=== PATIENT | male | born 1960 | race Caucasian/White ===

== ENCOUNTER 2016-06-14 14:03 | Inpatient (IN) | payer OTHER ==
[~2016-06-14] VITALS: Ht 182.9 cm; Wt 84.2 kg
[2016-06-14] MEDS ORDERED: MECL1CHW4 PO (14:22)
[2016-06-14] MEDS ORDERED: IMD/2 PO (14:22)
[2016-06-14] MEDS ORDERED: [UNRECOGNIZED DRUG - CODE] IM (14:22)
[2016-06-14] MEDS ORDERED: ACET325T30 PO (14:22)
[2016-06-14] MEDS ORDERED: CHLO25CA9 PO (14:22)
[2016-06-14] MEDS ORDERED: SODIUM CHLORIDE 0.9% 1000ML 1,000 ML IV ONE (14:25)
[2016-06-14] MEDS ORDERED: SODIUM CHLORIDE 0.9% 1000ML 1,000 ML IV STA (14:25)
[2016-06-14] MEDS ORDERED: MULTI-VITAMIN INFUSION INJ 10 ML, THIAMINE HCL INJ 100 MG, FoLIC ACID INJ 1 MG in SODIU... IV ONE (14:30)
--- NOTE | 2016-06-14 14:43 | EMERGENCY ROOM VISIT NOTE ---
History Report prepared by Ambar: Alana Mccall Under the Supervision of: Dr. Gordy Jason M.D. First contact with patient: 14:17 Chief Complaint: ALTERED MENTAL STATUS Stated Complaint: DETOX Nursing Triage Summary: Pt arrives from [facility] with 2 guards, pt was detoxing from alcohol, has been at [facility] for two days, [facility] [place] [facility] to that. Pt knows that Vini is the President and when asked the year, pt states "2063". Pt talking about nuclear bombs. Pt denies SI/HI. Per documentation, pt is receiving Librium. Pt rambling in triage and when being assessed for initial information documentation. History of Present Illness The patient is a 55 year old male who presents to the Emergency Room with complaints of worsening altered mental status for the past 2 days. The patient was brought to the ED from [facility]. Per guards, they have had the patient for 2 days, but they are unsure how long he was in [facility] prior to that. They state that he was brought to them for detox. The patient states that he drinks about a 6-pack of beer a day and last consumed alcohol about 4-5 days ago. Guards state that he has been confused since he arrived at their facility, but his mental status has worsened today so he was brought to the ED for further evaluation. He has been in isolation, so guards deny any trauma or fighting. The patient is currently on Librium. He states that he has been experiencing abdominal burning and cramping and has been losing weight because he has been unable to eat. He notes rectal bleeding and states that he has been bleeding from his nose, mouth, and ears. He denies any illicit drug use. The history is limited secondary to the patient's AMS. Source of History: patient, other ([place] [facility] [place]) History Limited By: AMS Onset: 2 days ago Position: other (global) Quality: other (altered mental status) Timing: worsening Associated Symptoms: + abdominal pain Note: He notes rectal bleeding and states that he has been bleeding from his nose, mouth, and ears Review of Systems ROS is limited secondary to the patient's AMS. Past Medical & Surgical Medical Problems: (1) Alcohol withdrawal (2) Hepatitis C (3) History of alcohol abuse (4) History of IV drug abuse Surgical Problems: (1) H/O foot surgery Old medical records were attempted to be reviewed but there are no old records at this hospital. Nurse's notes were reviewed and I agree with. I did review the records that were sent over from [facility] and they were very limited unfortunately Family History No pertinent history stated. Social History Smoking Status: Current Every Day Smoker Alcohol Use: heavy Housing Status: other (incarcerated) Occupation Status: other (incarcerated) Current/Historical Medications Scheduled Thiamine Hcl (Thiamine Hcl), 100 MG IM DAILY Scheduled PRN Acetaminophen (Acetaminophen), 650 MG PO TID PRN for Pain Chlordiazepoxide Hcl (Librium), 25 MG PO TID PRN for WITHDRAWAL Loperamide Hcl (Imodium), 2 MG PO QID PRN for Diarrhea Meclizine Hcl (Meclizine Hcl), 25 MG PO TID PRN for Dizziness or Vertigo Allergies Coded Allergies: No Known Allergies (Unverified , 06/14/16) Physical Exam Vital Signs Date Time Temp Pulse Resp B/P Pulse Ox O2 Delivery O2 Flow Rate FiO2 06/14/16 15:54 85 20 136/90 97 Room Air 06/14/16 14:44 105 06/14/16 14:10 96 Room Air 06/14/16 14:09 36.7 88 20 114/83 96 Room Air Physical Exam General: Well developed well nourished non-ill appearing middle-aged male in no acute distress, breathing comfortably on room air. Normal speech HEENT: Normal cephalic atraumatic. Pupils are equal round and reactive to light. Extraocular movements are intact. Oropharynx is pink with moist mucous membranes. No swelling of the mouth lips or tongue. Neck: Supple with a midline trachea. No meningeal signs or stiffness, no JVD or bruits. No Stridor. Chest: Clear to auscultation bilaterally. No wheezes or rhonchi. No increased work of breathing. Heart: regular rate and rhythm. Abdomen: Soft nontender, nondistended without rebound guarding or rigidity. Extremities: No cyanosis clubbing or edema. No calf tenderness or assymetry Spine/Back. Non tender to palpation. No CVA tenderness Skin: Good turgor without rashes. Neurologic exam: Answers some questions appropriately, very tangential thinking. Oriented to person and place, but not time. No tremor. Cranial nerves two through 12 are intact. Motor and sensation are intact and symmetrical throughout. Medical Decision & Procedures ER Provider Diagnostic Interpretation: Radiology results as stated below per my review and radiologist interpretation: CHEST ONE VIEW PORTABLE HISTORY: Atypical CHEST PAIN COMPARISON: None. FINDINGS: The lungs are clear. Cardiac silhouette is normal in size. No pleural effusions. No pneumothorax. IMPRESSION: No acute process. Electronically signed by: Shoaib Manrique M.D. 06/14/2016 2:58 PM Dictated Date/Time: 06/14/2016 2:[address] CT DOSE: 1425.10 mGy.cm HISTORY: Altered mental status. TECHNIQUE: Multiaxial CT images of the head were performed without the use of intravenous contrast. Automated exposure control was utilized for this study. Comparison: None. Findings: The paranasal sinuses and mastoid air cells are clear. The calvarium and skull base are intact. The ventricles and sulci are within normal limits. There is no mass, hematoma, midline shift, or acute infarct. Impression: No acute intracranial abnormality. Electronically signed by: Shoaib Manrique M.D. 06/14/2016 4:03 PM Dictated Date/Time: 06/14/2016 3:27 PM Laboratory Results 06/14/16 14:20 Red Blood Count 3.77, Mean Corpuscular Volume 96.0, Mean Corpuscular Hemoglobin 34.0, Mean Corpuscular Hemoglobin Concent 35.4, Mean Platelet Volume 11.0, Neutrophils (%) (Auto) 68.0, Lymphocytes (%) (Auto) 19.8, Monocytes (%) (Auto) 11.9, Eosinophils (%) (Auto) 0.1, Basophils (%) (Auto) 0.1, Neutrophils # (Auto ) 4.66, Lymphocytes # (Auto) 1.36, Monocytes # (Auto) 0.82, Eosinophils # (Auto ) 0.01, Basophils # (Auto) 0.01 06/14/16 14:20 Test 06/14/16 14:10 06/14/16 14:20 06/14/16 14:25 06/14/16 14:34 Bedside Glucose 111 mg/dl (70-99) White Blood Count 6.87 K/uL (4.8-10.8) Red Blood Count 3.77 M/uL (4.7-6.1) Hemoglobin 12.8 g/dL (14.0-18.0) Hematocrit 36.2 % (42-52) Mean Corpuscular Volume 96.0 fL (80-100) Mean Corpuscular Hemoglobin 34.0 pg (25-34) Mean Corpuscular Hemoglobin Concent 35.4 g/dl (32-36) Platelet Count 97 K/uL (130-400) Mean Platelet Volume 11.0 fL (7.4-10.4) Neutrophils (%) (Auto) 68.0 % Lymphocytes (%) (Auto) 19.8 % Monocytes (%) (Auto) 11.9 % Eosinophils (%) (Auto) 0.1 % Basophils (%) (Auto) 0.1 % Neutrophils # (Auto) 4.66 K/uL (1.4-6.5) Lymphocytes # (Auto) 1.36 K/uL (1.2-3.4) Monocytes # (Auto) 0.82 K/uL (0.11-0.59) Eosinophils # (Auto) 0.01 K/uL (0-0.5) Basophils # (Auto) 0.01 K/uL (0-0.2) RDW Standard Deviation 50.0 fL (36.4-46.3) RDW Coefficient of Variation 14.2 % (11.5-14.5) Immature Granulocyte % (Auto) 0.1 % Immature Granulocyte # (Auto) 0.01 K/uL (0.00-0.02) Platelet Estimate DECREASED Large Platelets 1+ Prothrombin Time 14.2 SECONDS (9.0-12.0) Prothromb Time International Ratio 1.3 (0.9-1.1) Activated Partial Thromboplast Time 28.3 SECONDS (21.0-31.0) Partial Thromboplastin Ratio 1.1 Anion Gap 12.0 mmol/L (3-11) Est Creatinine Clear Calc Drug Dose 60.4 ml/min Estimated GFR () 59.5 Estimated GFR (Non- 51.3 BUN/Creatinine Ratio 22.7 (10-20) Calcium Level 9.2 mg/dl (8.5-10.1) Magnesium Level 1.3 mg/dl (1.8-2.4) Total Bilirubin 2.2 mg/dl (0.2-1) Direct Bilirubin 1.2 mg/dl (0-0.2) Aspartate Amino Transf (AST/SGOT) 118 U/L (15-37) Alanine Aminotransferase (ALT/SGPT) 53 U/L (12-78) Alkaline Phosphatase 62 U/L (45-117) Total Creatine Kinase 1138 U/L (39-308) Creatine Kinase MB 12.9 ng/ml (0.5-3.6) Total Protein 8.2 gm/dl (6.4-8.2) Albumin 3.8 gm/dl (3.4-5.0) Lipase 562 U/L (73-393) Thyroid Stimulating Hormone (TSH) 5.970 uIu/ml (0.300-4.500) Free Thyroxine 1.56 ng/dl (0.80-1.60) Creatine Kinase MB Ratio (0-3.0) Bedside Troponin I 0.000 ng/ml (0-0.045) Laboratory studies as stated above per my review. Medications Administered Medications (Trade) Dose Ordered Sig/Camacho Route Start Time Stop Time Status Last Admin Dose Admin Sodium Chloride 1,000 ml @ 999 mls/hr Q1H1M STAT IV 06/14/16 14:25 06/14/16 15:25 DC 06/14/16 14:39 999 MLS/HR Sodium Chloride 1,000 ml @ 150 mls/hr Q6H40M ONCE IV 06/14/16 14:25 06/14/16 19:07 DC 06/14/16 14:25 150 MLS/HR Multivitamins/ Thiamine HCl/ Folic Acid/Sodium Chloride (Mvi Infusion Inj/Vitamin B-1 Inj/Folvite Inj/ Nss 1000ml) 1,011.2 ml @ 200 mls/ hr Q5H4M ONCE IV 06/14/16 14:30 06/14/16 19:33 DC 06/14/16 14:57 200 MLS/HR Lorazepam (Ativan Inj) 1 mg NOW STAT IV 06/14/16 15:19 06/14/16 15:21 DC 06/14/16 15:54 1 MG ECG Indication: altered mental status Rate (beats per minute): 88 Rhythm: sinus rhythm Findings: PAC (occasional ), no acute ischemic change, prolonged QT (mildly) ED Course 1417: Past medical records reviewed. The patient was evaluated in room A11B, and a complete history and physical examination were performed. 1425: NSS 1000 ml @ 150 mls/hr IV, NSS 1000 ml @ 999 mls/hr IV 1430: Multivitamins 10ml/Thiamine HCl 100 mg/Folic Acid 1 mg/Sodium Chloride 1011.2 ml @ 200 mls/hr IV 1515: I reassessed the patient at this time. He is feeling shaky but resting comfortably. I discussed the results and treatment plan with the patient. I answered all pertaining questions that he had. He expressed understanding and verbalized agreement. 1519: Ativan 1 mg IV 1534: I spoke with Layne Zamora PA-C. We discussed the patients results and treatment plan. [facility] 1829: I reassessed the patient. He had just received 4mg more of Ativan. He is still having withdrawal symptoms and the plan is to admit the patient to the ICU. 1849: I went to reevaluate the patient but he has been taken to the ICU. Medical Decision Differential diagnoses includes alcohol withdrawal, electrolyte or metabolic abnormality, trauma, intracranial hemorrhage, infection. This patient comes in as described above. He has had increasing confusion he has a history of alcoholism apparently is on Librium in the [facility]. History is very unclear but apparently he's been there for 2 days was transferred there from somewhere else and we think the last drink was 4 days ago. On exam, he answers some questions appropriately but others not him a his initial vitals are stable and he is not tachycardic or hypertensive. He was observed, I did a CAT scan is had multiple blood testing EKG. CAT scan of his head is unremarkable. He has mild elevation of his liver functions and kidney functions but no reason to cause his symptoms. He did seem to get a little more tremulous and was given Ativan 1 mg IV, he was also given an IV banana bag. Most likely this is alcohol withdrawal a could be related other substances. I did attempt to get an acetaminophen and salicylate levels however they could not run him in our lab due to interference with the bilirubin apparently. There is nothing to suggest that he's taken an intentional overdose although his history is unreliable. I do think he needs to be admitted for observation further treatment and evaluation. I have consulted the [facility] hospitalist who saw him in the ER. Note: The patient was seen by the [facility] team in the ER. Shortly after that he decompensated and became much worse. He became agitated and shaky which she had not been. His vital signs of a normal and he was now tachycardic. There is certainly concern for DTs and alcohol withdrawal. The [facility] team did give him several boluses of IV Ativan. I did come and assess the patient as well and agree with the plan. They have also plan to admit him to the ICU and he well further monitoring there and may need further medications in the ICU such as dexmedetomidine. Consults Time Called: 152 Consulting Physician: Layne Zamora PA-C Returned Call: 1534 I spoke with Layne Zamora PA-C. We discussed the patients results and treatment plan. The patient will be evaluated by the [facility] Hospitalist Group for further management. Impression Primary Impression: Altered mental status Additional Impression: Alcohol withdrawal Scribe Attestation The scribe's documentation has been prepared under my direction and personally reviewed by me in its entirety. I confirm that the note above accurately reflects all work, treatment, procedures, and medical decision making performed by me. Departure Information Dispostion Being Evaluated By Hospitalist Referrals Sven DONATO (PCP) Patient Instructions My [facility] Problem Qualifiers Primary Impression: Altered mental status Altered mental status type: unspecified Qualified Codes: R41.82 - Altered mental status, unspecified Additional Impression: Alcohol withdrawal Complication of substance-induced condition: uncomplicated Qualified Codes: F10.230 - Alcohol dependence with withdrawal, uncomplicated
[2016-06-14 14:53] LABS: INR 1.3 (0.9-1.1); PARTIAL THROMBOPLASTIN RATIO 1.1; PROTHROMBIN TIME (PATIENT) 14.2 SECONDS (9.0-12.0)
[2016-06-14 14:55] LABS: BUN/CREATININE RATIO 22.7 (10-20); CALCIUM 9.2 mg/dl (8.5-10.1); CREATININE 1.5 mg/dl (0.60-1.40); MAGNESIUM 1.3 mg/dl (1.8-2.4); POTASSIUM 3.1 mmol/L (3.5-5.1)
--- NOTE | 2016-06-14 14:58 | DIAGNOSTIC IMAGING REPORT ---
CHEST ONE VIEW PORTABLE HISTORY: Atypical CHEST PAIN COMPARISON: None. FINDINGS: The lungs are clear. Cardiac silhouette is normal in size. No pleural effusions. No pneumothorax. IMPRESSION: No acute process. Electronically signed by: Shoaib Manrique M.D. 06/14/2016 2:58 PM Dictated Date/Time: 06/14/2016 2:55 PM
[2016-06-14 15:10] LABS: CKMB/CK RATIO 1.1 (0-3.0); THYROID STIMULATING HORMONE 5.97 uIu/ml (0.300-4.500)
[2016-06-14 15:12] LABS: HEMATOCRIT 36.2 % (42-52); MEAN CORPUSCULAR HGB CONC 35.4 g/dl (32-36); PLATELET COUNT 97 K/uL (130-400); RED BLOOD COUNT 3.77 M/uL (4.7-6.1); WHITE BLOOD COUNT 6.87 K/uL (4.8-10.8)
[2016-06-14] MEDS ORDERED: LORAZEPAM 2 MG/ML 1 ML VIAL IV STA ×2 (15:19→17:46)
[2016-06-14 15:23] LABS: BASO % 0.1 %; BASO ABS # 0.01 K/uL (0-0.2); COMPLETE YES; EOS % 0.1 %; IG% 0.1 %; LARGE PLATELETS 1+; LYMPH % 19.8 %; LYMPH ABS # 1.36 K/uL (1.2-3.4); MONO % 11.9 %; PLT ESTIMATE DECREASED
--- NOTE | 2016-06-14 16:05 | DIAGNOSTIC IMAGING REPORT ---
HEAD CT NONCONTRAST CT DOSE: 1425.10 mGy.cm HISTORY: Altered mental status. TECHNIQUE: Multiaxial CT images of the head were performed without the use of intravenous contrast. Automated exposure control was utilized for this study. Comparison: None. Findings: The paranasal sinuses and mastoid air cells are clear. The calvarium and skull base are intact. The ventricles and sulci are within normal limits. There is no mass, hematoma, midline shift, or acute infarct. Impression: No acute intracranial abnormality. Electronically signed by: Shoaib Manrique M.D. 06/14/2016 4:03 PM Dictated Date/Time: 06/14/2016 3:27 PM
[2016-06-14] MEDS ORDERED: THIAMINE HCL 100 MG TAB PO STA (16:23)
[2016-06-14] MEDS ORDERED: GABAPENTIN 600 MG TAB PO SCH (16:30)
[2016-06-14] MEDS ORDERED: ONDANSETRON INJ 2 MG/ML 2 ML VIAL IV PRN (16:45)
[2016-06-14] MEDS ORDERED: LORAZEPAM 2 MG/ML 1 ML VIAL IV ONE ×3 (17:00→19:00)
--- NOTE | 2016-06-14 17:03 | History and Physical ---
History & Physical Date & Time of Service: Jun 14, 2016 at 16:34 Chief Complaint: DETOX Primary Care Physician: Sven DONATO History of Present Illness Source: patient, other (nursing staff, correctional officers at bedside) This is a 55 year old male with PMH of alcohol abuse, remote history of IVDA, Hepatitis C, chronic smoker, who was sent to the ED from [facility] for altered mental status. Patient is not a reliable historian due to mental status. Patient has been in and out of [facility] in the past but was re- incarcerated 2 days ago. Correctional officers at bedside report worsening mental status over past 2 days. Patient was already confused when picked up off the street 2 days ago but worsened over past 2 days. Pt states "I am going though DT's". He reports tremors, anxiety, sweating, abdominal cramping, paresthesias. He told ER physician last drink was 4 days ago, but tells me 8 days. He was drinking 6 pack of beer every day. He has been on Librium. He was vomiting several days ago when drinking but no longer feeling nauseous. He additionally reports rectal bleeding attributed to hemorrhoids. Denies headache , URI symptoms, cough, SOB, chest pain, diarrhea, urinary changes, recent fall or injury. Denies history of withdrawal seizure. Denies hx of HTN, DM, cardiac or lung disease. No further hx could be obtained due to AMS. Past Medical/Surgical History Medical Problems: (1) Hepatitis C Status: Chronic (2) History of alcohol abuse Status: Chronic (3) History of IV drug abuse Status: Chronic Surgical Problems: (1) H/O foot surgery Status: Chronic Family History Could not be obtained due to mental status. Social History Smoking Status: Current Every Day Smoker Alcohol Use: heavy (see HPI) Drug Use: other (history of IVDA "a long time ago") Housing status: other (in [facility]) Occupational Status: other (incarcerated) Allergies Coded Allergies: No Known Allergies (Unverified , 06/14/16) Home Medications Scheduled Thiamine Hcl (Thiamine Hcl), 100 MG IM DAILY Scheduled PRN Acetaminophen (Acetaminophen), 650 MG PO TID PRN for Pain Chlordiazepoxide Hcl (Librium), 25 MG PO TID PRN for WITHDRAWAL Loperamide Hcl (Imodium), 2 MG PO QID PRN for Diarrhea Meclizine Hcl (Meclizine Hcl), 25 MG PO TID PRN for Dizziness or Vertigo Review of Systems Full ROS could not be reliably obtained due to patient's mental status. Physical Exam Vital Signs Date Time Temp Pulse Resp B/P Pulse Ox O2 Delivery O2 Flow Rate FiO2 06/14/16 15:54 85 20 136/90 97 Room Air 06/14/16 14:44 105 06/14/16 14:09 36.7 88 20 114/83 96 Room Air General Appearance: WD/WN, + pertinent finding (anxious confused 55 year old male) Head: normocephalic, atraumatic Eyes: normal inspection, PERRL, EOMI ENT: hearing grossly normal, pharynx normal Neck: supple, trachea midline Respiratory/Chest: lungs clear, normal breath sounds, no respiratory distress, no accessory muscle use Cardiovascular: regular rate, rhythm, no murmur Abdomen/GI: normal bowel sounds, non tender, soft Extremities/Musculoskelatal: no calf tenderness, no pedal edema, + pertinent finding (left arm and bilateral ankles in handcuffs) Neurologic/Psych: alert, + disoriented (oriented to person and date, disoriented to place (states location as [place])), + pertinent finding (anxious , tremulous, + tangential thinking, speech is normal, no facial droop, no gross focal motor deficit) Skin: normal color, warm/dry Diagnostics Laboratory Results Results Past 24 Hours Test 06/14/16 14:10 06/14/16 14:20 06/14/16 14:25 06/14/16 14:34 Range/Units Bedside Glucose 111 70-99 mg/dl White Blood Count 6.87 4.8-10.8 K/uL Red Blood Count 3.77 4.7-6.1 M/uL Hemoglobin 12.8 14.0-18.0 g/dL Hematocrit 36.2 42-52 % Mean Corpuscular Volume 96.0 80-100 fL Mean Corpuscular Hemoglobin 34.0 25-34 pg Mean Corpuscular Hemoglobin Concent 35.4 32-36 g/dl Platelet Count 97 130-400 K/uL Mean Platelet Volume 11.0 7.4-10.4 fL Neutrophils (%) (Auto) 68.0 % Lymphocytes (%) (Auto) 19.8 % Monocytes (%) (Auto) 11.9 % Eosinophils (%) (Auto) 0.1 % Basophils (%) (Auto) 0.1 % Neutrophils # (Auto) 4.66 1.4-6.5 K/uL Lymphocytes # (Auto) 1.36 1.2-3.4 K/uL Monocytes # (Auto) 0.82 0.11-0.59 K/uL Eosinophils # (Auto) 0.01 0-0.5 K/uL Basophils # (Auto) 0.01 0-0.2 K/uL RDW Standard Deviation 50.0 36.4-46.3 fL RDW Coefficient of Variation 14.2 11.5-14.5 % Immature Granulocyte % (Auto) 0.1 % Immature Granulocyte # (Auto) 0.01 0.00-0.02 K/uL Platelet Estimate DECREASED Large Platelets 1+ Prothrombin Time 14.2 9.0-12.0 SECONDS Prothromb Time International Ratio 1.3 0.9-1.1 Activated Partial Thromboplast Time 28.3 21.0-31.0 SECONDS Partial Thromboplastin Ratio 1.1 Sodium Level 138 136-145 mmol/L Potassium Level 3.1 3.5-5.1 mmol/L Chloride Level 101 98-107 mmol/L Carbon Dioxide Level 25 21-32 mmol/L Anion Gap 12.0 3-11 mmol/L Blood Urea Nitrogen 34 7-18 mg/dl Creatinine 1.50 0.60-1.40 mg/dl Est Creatinine Clear Calc Drug Dose 60.4 ml/min Estimated GFR () 59.5 Estimated GFR (Non- 51.3 BUN/Creatinine Ratio 22.7 10-20 Random Glucose 99 70-99 mg/dl Calcium Level 9.2 8.5-10.1 mg/dl Magnesium Level 1.3 1.8-2.4 mg/dl Total Bilirubin 2.2 0.2-1 mg/dl Direct Bilirubin 1.2 0-0.2 mg/dl Aspartate Amino Transf (AST/SGOT) 118 15-37 U/L Alanine Aminotransferase (ALT/SGPT) 53 12-78 U/L Alkaline Phosphatase 62 45-117 U/L Total Creatine Kinase 1138 39-308 U/L Creatine Kinase MB 12.9 0.5-3.6 ng/ml Creatine Kinase MB Ratio 1.1 0-3.0 Total Protein 8.2 6.4-8.2 gm/dl Albumin 3.8 3.4-5.0 gm/dl Lipase 562 73-393 U/L Thyroid Stimulating Hormone (TSH) 5.970 0.300-4.500 uIu/ml Bedside Troponin I 0.000 0-0.045 ng/ml Test 06/14/16 16:23 Range/Units Diagnostic Radiology HEAD CT NONCONTRAST CT DOSE: 1425.10 mGy.cm HISTORY: Altered mental status. TECHNIQUE: Multiaxial CT images of the head were performed without the use of intravenous contrast. Automated exposure control was utilized for this study. Comparison: None. Findings: The paranasal sinuses and mastoid air cells are clear. The calvarium and skull base are intact. The ventricles and sulci are within normal limits. There is no mass, hematoma, midline shift, or acute infarct. Impression: No acute intracranial abnormality. CHEST ONE VIEW PORTABLE HISTORY: Atypical CHEST PAIN COMPARISON: None. FINDINGS: The lungs are clear. Cardiac silhouette is normal in size. No pleural effusions. No pneumothorax. IMPRESSION: No acute process. EKG sinus rhythm with PACs, prolonged QT (qtc 500), nonspecific T wave abnormality in III, no ST change Impression Assessment and Plan ALCOHOL WITHDRAWAL Admit to telemetry Presents with altered mental status, tremor, hx heavy alcohol use, last drink approx 4 days ago HR and BP stable CT head- no acute findings Urine drug screen ordered Treated in ER with Ativan 1 mg IV, banana bag, IVF's Remains tremulous, confused- will give additional Ativan 3 mg IV Start gabapentin withdrawal protocol Daily thiamine Continue IVF's AN Creat is 1.5; baseline unknown Continue IVF's Monitor renal function HYPOKALEMIA/ HYPOMAGNESEMIA Replace and monitor ELEVATED CK Possibly from tremor Recheck in am ABNORMAL LFT'S Baseline unknown History of hepatitis C, alcohol abuse Recheck in am ELEVATED TSH Check free T4 PROLONGED QT Avoid QT prolonging medications Recheck EKG in am DVT PROPHYLAXIS SCD's FULL CODE DISPOSITION Prisoner at [facility] Patient seen in collaboration with Dr. Bell. Please see her addendum. I have seen and examined the patient and discussed the case with the provider above. I agree with the assessment and plan as stated with the following exceptions. This patient became more anxious, combative, tremulous and tachycardic in the ER, confabulating while he was talking with me. He was given a total of 12mg of Ativan over 1.5 hrs with no improvement. He was rerouted to the ICU for monitoring and a Precedex drip was ordered. He states that he also "eats" Suboxone a couple of times a week and drinks 1/5 of vodka regularly. Tachycardic with BP 130 systolic, and physical exam as above. His last reported drink was 8 days ago, and he was incarcerated 2 days ago. If not improved on the Precedex would consider narcotic withdrawal, as well. Although he states that a girlfriend of his does heroin and cocaine, he denies taking these drugs or anything other that ETOH and Suboxine. Cont ICU monitoring while on drip. Appreciate Dampener Operator assistance with this case. Yakelin Bell , DO Level of Care Critical Care Resuscitation Status FULL RESUSCITATION VTE Prophylaxis VTE Risk Assessment Done? Y/N: Yes Risk Level: Moderate Given or contraindicated: SCD's
[2016-06-14 17:09] VITALS: Ht 182.9 cm; Wt 84.2 kg
[2016-06-14] MEDS ORDERED: MAGNESIUM SULFATE 1GM / D5W 1 GM BAG ONE ×2 (17:42)
[2016-06-14] MEDS ORDERED: POTASSIUM CHLORIDE 10 MEQ TABCR PO ONE (17:45)
[2016-06-14] MEDS: MAGNESIUM SULFATE 1GM / D5W 1 GM in PREMIXED IN D5W 100 ML IV SCH ×4 (17:58→20:51)
[2016-06-14] MEDS ORDERED: NURSING VERBAL MED ORDER ONE (18:00)
[2016-06-14] MEDS ORDERED: [UNRECOGNIZED DRUG - OTHER] IV STA (18:20)
[2016-06-14] MEDS ORDERED: DexMEDEtomidine IV DRIP IV STA (18:20)
[2016-06-14] MEDS ORDERED: DexMEDEtomidine 4 mcg/ml Loading Dose IV ONE (19:00)
[2016-06-14 19:30] VITALS: BP 170/94; PULSE 76; TEMP 36.9; O2SAT 94
[2016-06-14] MEDS ORDERED: POTASSIUM CHLR 10 MEQ / WTR 10 MEQ in PREMIXED WATER 100 ML IV SCH ×2 (19:30→20:00)
[2016-06-14] MEDS ORDERED: GABAPENTIN 1200MG LOADING DOSE PO SCH (19:30)
[2016-06-14] MEDS: DexMEDEtomidine HCL IV 200 MCG in SODIUM CHLORIDE 0.9% 50ML 48 ML IV PRN ×2 (19:40→22:55)
[2016-06-14] MEDS: THIAMINE HCL INJ 100 MG in SYRINGE 9 ML IV SCH (19:42)
[2016-06-14] MEDS: SODIUM CHLORIDE 0.9% 1000ML 1,000 ML IV SCH (19:42)
[2016-06-14 20:00] VITALS: BP_SYST 169; BP_SYST 175; BP_DIAS 85; BP_DIAS 88; PULSE 70; PULSE 73; TEMP 36.9; O2SAT 93; O2SAT 94
--- NOTE | 2016-06-14 20:12 | Critical Care Consultation ---
Critical Care Consultation Date of Consultation: Jun 14, 2016. Attending Physician: Kavon Hung MD Reason for Consultation: Alcohol withdrawal delirium History of Present Illness This is a 55 year old male, incarcerated for two days, with h/o IVDA, smoker, alcohol abuse, was brought to ED for AMS. I am unable to obtain history from the patient due to agitated delirium, he is quite tremulous. Received several doses of Ativan but continue to worsen, so he was transferred to ICU for continuous infusions Per chart, he was already confused when he was picked up, but continued to decline Past Medical/Surgical History Hepatitis C ETOH abuse h/o IVDA Social History Smoking Status: Unknown if Ever Smoked Alcohol Use: heavy (see HPI) Drug Use: other (history of IVDA "a long time ago") Housing Status: other (incarcerated) Occupation Status: other (incarcerated) Allergies Coded Allergies: No Known Allergies (Unverified , 06/14/16) Home Medications Scheduled Thiamine Hcl (Thiamine Hcl), 100 MG IM DAILY Scheduled PRN Acetaminophen (Acetaminophen), 650 MG PO TID PRN for Pain Chlordiazepoxide Hcl (Librium), 25 MG PO TID PRN for WITHDRAWAL Loperamide Hcl (Imodium), 2 MG PO QID PRN for Diarrhea Meclizine Hcl (Meclizine Hcl), 25 MG PO TID PRN for Dizziness or Vertigo Current Inpatient Medications Current Inpatient Medications Medications (Trade) Dose Ordered Sig/Camacho Route Start Time Stop Time Status Last Admin Dose Admin Potassium Chloride 10 meq/ Prmx 100 ml @ 100 mls/hr Q1H IV 06/14/16 19:30 06/14/16 21:29 06/14/16 19:41 100 MLS/HR Magnesium Sulfate 1 gm/Prmx 100 ml @ 100 mls/hr Q1H IV 06/14/16 18:00 06/14/16 21:59 06/14/16 19:41 100 MLS/HR Sodium Chloride 1,000 ml @ 150 mls/hr Q6H40M IV 06/14/16 19:30 06/15/16 08:49 06/14/16 19:42 150 MLS/HR Thiamine HCl/ Syringe (Vitamin B-1 Inj/ Syringe) 10 ml @ 2 mls/min DAILY@0900 IV 06/14/16 19:30 07/14/16 19:29 06/14/16 19:42 2 MLS/MIN Acetaminophen (Tylenol Tab) 650 mg Q4H PRN PO 06/14/16 16:45 07/14/16 16:44 Chlordiazepoxide 25 mg 25 mg TID PO 06/14/16 21:00 07/14/16 20:59 Future Hold Dexmedetomidine HCl/Sodium Chloride (PreCEDEX INJ/ Nss 50ml) 50 ml @ 0 mls/hr Q0M PRN IV 06/14/16 18:45 06/18/16 18:44 06/14/16 19:40 8.3 MLS/HR Gabapentin (Neurontin Tab) 1,200 mg TODAY@1930 PO 06/14/16 19:30 07/14/16 19:29 Gabapentin (Neurontin Tab) 600 mg Q6H PO 06/15/16 00:00 06/15/16 06:01 Gabapentin (Neurontin Tab) 600 mg Q8H PO 06/15/16 14:00 06/16/16 06:01 Gabapentin (Neurontin Tab) 600 mg Q12H PO 06/16/16 18:00 06/17/16 06:01 Gabapentin (Neurontin Tab) 600 mg Q24H PO 06/17/16 06:00 06/17/16 06:01 Review of Systems Unable to obtain secondary to confusion Physical Exam Date Time Temp Pulse Resp B/P Pulse Ox O2 Delivery O2 Flow Rate FiO2 06/14/16 18:35 99 18 130/100 96 06/14/16 18:30 99 18 96 Room Air 06/14/16 18:02 101 24 130/100 96 Room Air 06/14/16 17:56 94 24 155/100 97 Room Air 06/14/16 17:09 Room Air 06/14/16 17:00 72 24 131/89 97 Room Air 06/14/16 15:54 85 20 136/90 97 Room Air 06/14/16 14:44 105 06/14/16 14:10 96 Room Air 06/14/16 14:09 36.7 88 20 114/83 96 Room Air General Appearance: WD/WN, other (Agitated) Eyes: PERRLA Respiratory: breath sounds normal, clear to auscultation Cardiovasular: regular rate/rhythm, normal S1S2 Abdomen: non tender, other (soft) Upper Extremities: no edema Lower Extremities: no edema Neuro: normal motor exam, disoriented, confused, other (tremulous) Laboratory Results Last 24 Hours Test 06/14/16 14:10 06/14/16 14:20 06/14/16 14:25 06/14/16 14:34 Bedside Glucose 111 mg/dl White Blood Count 6.87 K/uL Red Blood Count 3.77 M/uL Hemoglobin 12.8 g/dL Hematocrit 36.2 % Mean Corpuscular Volume 96.0 fL Mean Corpuscular Hemoglobin 34.0 pg Mean Corpuscular Hemoglobin Concent 35.4 g/dl Platelet Count 97 K/uL Mean Platelet Volume 11.0 fL Neutrophils (%) (Auto) 68.0 % Lymphocytes (%) (Auto) 19.8 % Monocytes (%) (Auto) 11.9 % Eosinophils (%) (Auto) 0.1 % Basophils (%) (Auto) 0.1 % Neutrophils # (Auto) 4.66 K/uL Lymphocytes # (Auto) 1.36 K/uL Monocytes # (Auto) 0.82 K/uL Eosinophils # (Auto) 0.01 K/uL Basophils # (Auto) 0.01 K/uL RDW Standard Deviation 50.0 fL RDW Coefficient of Variation 14.2 % Immature Granulocyte % (Auto) 0.1 % Immature Granulocyte # (Auto) 0.01 K/uL Platelet Estimate DECREASED Large Platelets 1+ Prothrombin Time 14.2 SECONDS Prothromb Time International Ratio 1.3 Activated Partial Thromboplast Time 28.3 SECONDS Partial Thromboplastin Ratio 1.1 Sodium Level 138 mmol/L Potassium Level 3.1 mmol/L Chloride Level 101 mmol/L Carbon Dioxide Level 25 mmol/L Anion Gap 12.0 mmol/L Blood Urea Nitrogen 34 mg/dl Creatinine 1.50 mg/dl Est Creatinine Clear Calc Drug Dose 60.4 ml/min Estimated GFR () 59.5 Estimated GFR (Non- 51.3 BUN/Creatinine Ratio 22.7 Random Glucose 99 mg/dl Calcium Level 9.2 mg/dl Magnesium Level 1.3 mg/dl Total Bilirubin 2.2 mg/dl Direct Bilirubin 1.2 mg/dl Aspartate Amino Transf (AST/SGOT) 118 U/L Alanine Aminotransferase (ALT/SGPT) 53 U/L Alkaline Phosphatase 62 U/L Total Creatine Kinase 1138 U/L Creatine Kinase MB 12.9 ng/ml Creatine Kinase MB Ratio 1.1 Total Protein 8.2 gm/dl Albumin 3.8 gm/dl Lipase 562 U/L Thyroid Stimulating Hormone (TSH) 5.970 uIu/ml Free Thyroxine 1.56 ng/dl Bedside Troponin I 0.000 ng/ml Test 06/14/16 17:32 Vitamin B12 Level 1037 pg/mL Folate > 24.00 ng/mL Diagnostic Results CT brain today: Impression: No acute intracranial abnormality. Assessment & Plan 55 year old male, incarcerated for two days, in severe alcohol withdrawal. Also with mild rhabdomyolysis, thrombocytopenia Hypomagnesemia Hypokalemia Plan: Started on Precedex drip Start Librium, increase to 50 mg tid "banana bag" daily Supplemented Mg 4 grams, KCl 20 meq iv and 40 meq po repeat lytes tomorrow Mild rhabdomyolysis. Continue iv fluids, monitor CPK AST/ALT mildly elevated, typical 2:1 ration seen in alcoholics Monitor in the ICU for now, at risk for intubation, need for continuous infusions Monitor platelets, probably decreased secondary to liver disease DVT prophylaxis - start SC heparin Critical care time spent greater than 30 minutes
[2016-06-14 20:30] VITALS: BP 175/88; PULSE 66; O2SAT 92
[2016-06-14] MEDS: CHLORDIAZEPOXIDE 25 MG CAP PO SCH (20:30)
[2016-06-14] MEDS: POTASSIUM CHLR 10 MEQ / WTR 10 MEQ in PREMIXED WATER 100 ML IV SCH ×3 (20:51→22:45)
[2016-06-14 21:00] VITALS: BP 146/99; PULSE 68; O2SAT 94
[2016-06-14] MEDS ORDERED: CHLORDIAZEPOXIDE 25 MG CAP PO SCH (21:00)
[2016-06-14 21:31] VITALS: BP 131/98; PULSE 73; O2SAT 97
[2016-06-14 22:00] VITALS: BP 167/98; PULSE 60; O2SAT 98
[2016-06-14] MEDS: HEPARIN SOD 5000 UNIT/0.5 ML CARP SQ SCH (22:12)
[2016-06-14 23:11] LABS: MANUAL MICROSCOPIC REQUIRED? NO; REVIEW REQ? NO; URINE APPEARANCE CLEAR (CLEAR); URINE BILIRUBIN NEG (NEG); URINE COLOR YELLOW; URINE EPITHELIAL CELL AUTO 0-5 /lpf (0-5); URINE NITRITE NEG (NEG); URINE PH 7.5 (4.5-7.5); URINE SPECIFIC GRAVITY 1.007 (1.000-1.030); UROBILINOGEN NEG (NEG)
[2016-06-14 23:27] LABS: BENZODIAZEPINE, URINE POS (NEG); COCAINE,URINE NEG (NEG); PHENCYCLIDINE, URINE NEG (NEG)
[2016-06-15] VITALS (12 sets, daily range): BP systolic 103–168; BP diastolic 58–98; PULSE 52–108; TEMP 36.6–39.4; O2SAT 90–99
[2016-06-15] MEDS ORDERED: GABAPENTIN 600MG Q6H DOSE PO SCH
[2016-06-15] MEDS: SODIUM CHLORIDE 0.9% 1000ML 1,000 ML IV SCH ×2 (04:16→11:24)
[2016-06-15 05:31] LABS: HEMATOCRIT 36.5 % (42-52); MEAN CELL VOLUME 97.6 fL (80-100); MEAN CORPUSCULAR HEMOGLOBIN 33.7 pg (25-34); MEAN CORPUSCULAR HGB CONC 34.5 g/dl (32-36); RED BLOOD COUNT 3.74 M/uL (4.7-6.1); WHITE BLOOD COUNT 4.96 K/uL (4.8-10.8)
[2016-06-15] MEDS: DexMEDEtomidine HCL IV 200 MCG in SODIUM CHLORIDE 0.9% 50ML 48 ML IV PRN (05:32)
[2016-06-15 05:33] LABS: MEAN PLATELET VOLUME 10.9 fL (7.4-10.4); PLATELET COUNT 74 K/uL (130-400)
[2016-06-15] MEDS: HEPARIN SOD 5000 UNIT/0.5 ML CARP SQ SCH ×3 (05:34→21:48)
[2016-06-15 06:15] LABS: BUN/CREATININE RATIO 21.7 (10-20); CALCIUM 8.4 mg/dl (8.5-10.1); CREATININE 0.89 mg/dl (0.60-1.40); MAGNESIUM 2.1 mg/dl (1.8-2.4); POTASSIUM 3.1 mmol/L (3.5-5.1)
[2016-06-15] MEDS ORDERED: POTASSIUM CHLR 10 MEQ / WTR 10 MEQ in PREMIXED WATER 100 ML IV ONE (07:41)
[2016-06-15] MEDS ORDERED: POTASSIUM CHLR 10 MEQ / WTR 10 MEQ in PREMIXED WATER 100 ML IV SCH (08:00)
[2016-06-15] MEDS: THIAMINE HCL INJ 100 MG in SYRINGE 9 ML IV SCH (08:22)
[2016-06-15] MEDS: CHLORDIAZEPOXIDE 25 MG CAP PO SCH (08:26)
[2016-06-15] MEDS ORDERED: GABAPENTIN 600 MG TAB PO SCH (09:45)
[2016-06-15] MEDS ORDERED: CHLORDIAZEPOXIDE 25 MG CAP PO SCH (09:45)
[2016-06-15] MEDS ORDERED: POTASSIUM CHLORIDE 20 MEQ TABCR PO STA (09:49)
[2016-06-15] MEDS ORDERED: MAGNESIUM OXIDE 400 MG TAB PO ONE (09:55)
[2016-06-15] MEDS ORDERED: FLINTSTONES COMPLETE CHEWABLE TAB PO ONE (09:55)
[2016-06-15] MEDS ORDERED: CHLORDIAZEPOXIDE 50MG 1ST DOSE PO SCH (10:15)
[2016-06-15] MEDS ORDERED: GABAPENTIN 1200MG LOADING DOSE PO SCH (12:00)
--- NOTE | 2016-06-15 12:56 | Critical Care Progress Note ---
Critical Care Progress Note Date of Service Jun 15, 2016. ICU Day ICU Day Number: [address] Larry Subjective Resolution of excited delirium Objective General Appearance: WD/WN, other (Agitated) Eyes: PERRLA Respiratory: breath sounds normal, clear to auscultation Cardiovasular: regular rate/rhythm, normal S1S2 Abdomen: non tender, other (soft) Upper Extremities: no edema Lower Extremities: no edema Neuro: normal motor exam, disoriented, confused, other (tremulous) Current SOFA Score SOFA Score Response (Comments) Value Platelets (x10) < 100 2 Bilirubin (mg/dL) 2.0 - 5.9 2 Radha Coma Score 13 - 14 1 Level of Hypotension No Hypotension 0 Total 5 Assessment & Plan 55 year old male, incarcerated for two days, in severe alcohol withdrawal. Also with mild rhabdomyolysis, thrombocytopenia Hypomagnesemia Hypokalemia Plan: Discontinued Precedex drip On scheduled Librium, CIWA precautions ordered Daily multivitamin, magnesium, folic acid Mild rhabdomyolysis, resolved, decrease fluids to 75 ML's per hour AST/ALT mildly elevated, typical 2:1 ration seen in alcoholics, sent acute hepatitis panel, rule out hepatitis C - Add propranolol 10 mg 3 times a day Monitor CIWA per protocol Monitor platelets, probably decreased secondary to liver disease, hit score to highly unlikely to be heparin-induced thrombocytopenia, will check reticulocyte count DVT prophylaxis - start SC heparin Discontinue Thomas catheter I have personally spent 35 minutes of critical care time in the direct management of this patient. This is a life/limb threatening event. This includes time spent evaluating patient, direct bedside care, chart review, placing orders, interpretation of diagnostic studies, discussion with consultants, patient, and family members, as well as other required patient management activities. This time is exclusive of all separately billable procedures, and teaching time and separate from and in addition to any other critical care service time. Consults & Procedures Consultants: NA Procedures: NA Data Medications: Current Inpatient Medications Medications (Trade) Dose Ordered Sig/Camacho Route Start Time Stop Time Status Last Admin Dose Admin Acetaminophen (Tylenol Tab) 650 mg Q4H PRN PO 06/14/16 16:45 07/14/16 16:44 Heparin Sodium (Porcine) (Heparin Sq 5000 Unit/0.5ml) 5,000 unit Q8 SQ 06/14/16 22:00 07/14/16 21:59 06/15/16 05:34 5,000 UNIT Propranolol HCl 10 mg 10 mg TID PO 06/15/16 14:00 07/15/16 13:59 Sodium Chloride (Nss 1000ml) 1,000 ml @ 75 mls/hr [id number] IV 06/15/16 10:00 07/15/16 09:59 06/15/16 11:24 75 MLS/HR Multivitamins (Flintstones Complete Tab) 1 tab QAM PO 06/16/16 09:00 07/16/16 08:59 Folic Acid (Folvite Tab) 1 mg QAM PO 06/16/16 09:00 07/16/16 08:59 Gabapentin (Neurontin Tab) 600 mg Q6H PO 06/15/16 18:00 06/16/16 00:01 Gabapentin (Neurontin Tab) 600 mg Q8H PO 06/16/16 08:00 06/17/16 00:01 Gabapentin (Neurontin Tab) 600 mg Q12H PO 06/17/16 12:00 06/18/16 00:01 Gabapentin (Neurontin Tab) 600 mg Q24H PO 06/19/16 00:00 06/19/16 00:01 Chlordiazepoxide (Librium Cap) 50 mg Q8H PO 06/16/16 14:00 06/17/16 06:01 Chlordiazepoxide (Librium Cap) 25 mg Q8H PO 06/17/16 14:00 06/18/16 06:01 Chlordiazepoxide (Librium Cap) 10 mg Q12H PO 06/18/16 18:00 06/19/16 06:01 Chlordiazepoxide (Librium Cap) 50 mg Q6H PO 06/15/16 16:00 06/16/16 04:01 Thiamine HCl (Vitamin B-1 Tab) 100 mg DAILY PO 06/16/16 09:00 07/16/16 08:59 Magnesium Oxide (Mag-Ox Tab) 400 mg DAILY PO 06/16/16 09:00 07/16/16 08:59 I & O: 24-Hour Column 06/15/16 08:00 Intake Total 2344 ml Output Total 2450 ml Balance -106 ml Vital Signs: Date Time Temp Pulse Resp B/P Pulse Ox O2 Delivery O2 Flow Rate FiO2 06/15/16 12:00 Room Air 06/15/16 12:00 36.9 82 24 139/84 90 Room Air 06/15/16 10:00 57 24 140/90 96 Room Air 06/15/16 08:00 Room Air 06/15/16 08:00 37.2 57 29 152/94 96 Room Air 06/15/16 06:10 65 31 151/74 98 Room Air 06/15/16 04:00 36.6 57 28 135/83 94 Room Air 06/15/16 04:00 96 Room Air 06/15/16 02:00 67 27 148/98 99 Room Air 06/15/16 00:01 96 Room Air 06/15/16 00:01 52 23 168/98 96 Room Air 06/14/16 22:00 60 23 167/98 98 Room Air 06/14/16 21:31 73 28 131/98 97 Room Air 06/14/16 21:00 68 20 146/99 94 Room Air 06/14/16 20:30 66 21 175/88 92 Room Air 06/14/16 20:00 93 Room Air 06/14/16 20:00 36.9 70 24 175/88 94 Room Air 06/14/16 20:00 73 22 169/85 94 Room Air 06/14/16 19:30 36.9 76 25 170/94 94 Room Air 06/14/16 18:35 99 18 130/100 96 06/14/16 18:30 99 18 96 Room Air 06/14/16 18:02 101 24 130/100 96 Room Air 06/14/16 17:56 94 24 155/100 97 Room Air 06/14/16 17:09 Room Air 06/14/16 17:00 72 24 131/89 97 Room Air 06/14/16 15:54 85 20 136/90 97 Room Air 06/14/16 14:44 105 06/14/16 14:10 96 Room Air 06/14/16 14:09 36.7 88 20 114/83 96 Room Air Laboratory Results: Last 24 Hours Test 06/14/16 14:10 06/14/16 14:20 06/14/16 14:25 06/14/16 14:34 Bedside Glucose 111 mg/dl White Blood Count 6.87 K/uL Red Blood Count 3.77 M/uL Hemoglobin 12.8 g/dL Hematocrit 36.2 % Mean Corpuscular Volume 96.0 fL Mean Corpuscular Hemoglobin 34.0 pg Mean Corpuscular Hemoglobin Concent 35.4 g/dl Platelet Count 97 K/uL Mean Platelet Volume 11.0 fL Neutrophils (%) (Auto) 68.0 % Lymphocytes (%) (Auto) 19.8 % Monocytes (%) (Auto) 11.9 % Eosinophils (%) (Auto) 0.1 % Basophils (%) (Auto) 0.1 % Neutrophils # (Auto) 4.66 K/uL Lymphocytes # (Auto) 1.36 K/uL Monocytes # (Auto) 0.82 K/uL Eosinophils # (Auto) 0.01 K/uL Basophils # (Auto) 0.01 K/uL RDW Standard Deviation 50.0 fL RDW Coefficient of Variation 14.2 % Immature Granulocyte % (Auto) 0.1 % Immature Granulocyte # (Auto) 0.01 K/uL Platelet Estimate DECREASED Large Platelets 1+ Prothrombin Time 14.2 SECONDS Prothromb Time International Ratio 1.3 Activated Partial Thromboplast Time 28.3 SECONDS Partial Thromboplastin Ratio 1.1 Sodium Level 138 mmol/L Potassium Level 3.1 mmol/L Chloride Level 101 mmol/L Carbon Dioxide Level 25 mmol/L Anion Gap 12.0 mmol/L Blood Urea Nitrogen 34 mg/dl Creatinine 1.50 mg/dl Est Creatinine Clear Calc Drug Dose 60.4 ml/min Estimated GFR () 59.5 Estimated GFR (Non- 51.3 BUN/Creatinine Ratio 22.7 Random Glucose 99 mg/dl Calcium Level 9.2 mg/dl Magnesium Level 1.3 mg/dl Total Bilirubin 2.2 mg/dl Direct Bilirubin 1.2 mg/dl Aspartate Amino Transf (AST/SGOT) 118 U/L Alanine Aminotransferase (ALT/SGPT) 53 U/L Alkaline Phosphatase 62 U/L Total Creatine Kinase 1138 U/L Creatine Kinase MB 12.9 ng/ml Creatine Kinase MB Ratio 1.1 Total Protein 8.2 gm/dl Albumin 3.8 gm/dl Lipase 562 U/L Thyroid Stimulating Hormone (TSH) 5.970 uIu/ml Free Thyroxine 1.56 ng/dl Bedside Troponin I 0.000 ng/ml Test 06/14/16 17:32 06/14/16 22:21 06/15/16 05:20 06/15/16 10:30 Vitamin B12 Level 1037 pg/mL Folate > 24.00 ng/mL Urine Color YELLOW Urine Appearance CLEAR Urine pH 7.5 Urine Specific [place] 1.007 Urine Protein NEG Urine Glucose (UA) NEG Urine Ketones NEG Urine Occult Blood TRACE Urine Nitrite NEG Urine Bilirubin NEG Urine Urobilinogen NEG Urine Leukocyte Esterase NEG Urine WBC (Auto) 0 /hpf Urine RBC (Auto) 0-4 /hpf Urine Hyaline Casts (Auto) 0 /lpf Urine Epithelial Cells (Auto) 0-5 /lpf Urine Bacteria (Auto) NEG Urine Opiates Screen NEG Urine Methadone, Qualitative NEG Urine Barbiturates NEG Urine Phencyclidine (PCP) Level NEG Ur Amphetamine/Methamphetamine NEG MDMA (Ecstasy) Screen NEG Urine Benzodiazepines Screen POS Urine Cocaine Metabolite NEG Urine Marijuana (THC) POS White Blood Count 4.96 K/uL Red Blood Count 3.74 M/uL Hemoglobin 12.6 g/dL Hematocrit 36.5 % Mean Corpuscular Volume 97.6 fL Mean Corpuscular Hemoglobin 33.7 pg Mean Corpuscular Hemoglobin Concent 34.5 g/dl RDW Standard Deviation 51.1 fL RDW Coefficient of Variation 14.3 % Platelet Count 74 K/uL Mean Platelet Volume 10.9 fL Absolute Reticulocyte Count 0.08 10^6/uL Percent Reticulocyte Count 2.0 % Sodium Level 143 mmol/L Potassium Level 3.1 mmol/L Chloride Level 110 mmol/L Carbon Dioxide Level 25 mmol/L Anion Gap 8.0 mmol/L Blood Urea Nitrogen 19 mg/dl Creatinine 0.89 mg/dl Est Creatinine Clear Calc Drug Dose 101.7 ml/min Estimated GFR () 110.8 Estimated GFR (Non- 95.6 BUN/Creatinine Ratio 21.7 Random Glucose 90 mg/dl Calcium Level 8.4 mg/dl Magnesium Level 2.1 mg/dl Total Bilirubin 2.4 mg/dl Direct Bilirubin 1.3 mg/dl Aspartate Amino Transf (AST/SGOT) 114 U/L Alanine Aminotransferase (ALT/SGPT) 49 U/L Alkaline Phosphatase 56 U/L Total Creatine Kinase 693 U/L Total Protein 7.2 gm/dl Albumin 3.2 gm/dl Hepatitis B Surface Antigen NEG Hepatitis C Antibody PRELIM POS
[2016-06-15] MEDS ORDERED: GABAPENTIN 600MG Q8H DOSE PO SCH (14:00)
[2016-06-15] MEDS: PROPRANOLOL HCL 10 MG TAB PO SCH ×2 (14:27→20:08)
[2016-06-15] MEDS: CHLORDIAZEPOXIDE 50MG 1ST DOSE PO SCH ×2 (15:01→21:49)
--- NOTE | 2016-06-15 15:53 | Progress Note ---
Internal Med Progress Note Date of Service: Jun 15, 2016. Provider Documentation: SUBJECTIVE: Patient is lying in the bed in no apparent distress. Seems bit confused but is more alert. In no acute distress. OBJECTIVE: Vital Signs-as noted below Examination: General Appearance: WD/WN, Anxious confused 55 year old male. Head: normocephalic, atraumatic Eyes: normal inspection, PERRL, EOMI ENT: hearing grossly normal, ears, Nose & pharynx are normal Neck: supple, trachea midline Respiratory/Chest: lungs clear, normal breath sounds, no respiratory distress, no accessory muscle use Cardiovascular: regular rate, rhythm, no murmur Abdomen/GI: normal bowel sounds, non tender, soft Extremities/Musculoskeletal: no calf tenderness, no pedal edema, left arm and bilateral ankles in handcuffs Neurologic/Psych: alert, + disoriented (oriented to person and date, disoriented to place (states location as [place])), Anxious, tremulous, + tangential thinking, speech is normal, no facial droop, no gross focal motor deficit) Skin: normal color, warm/dry Lab data as noted below. ASSESSMENT & PLAN: Alcohol Withdrawal: Presents presented with altered mental status, tremor, hx heavy alcohol use, last drink approx 4 days ago HR and BP stable. Remains tremulous, confused intermittently.Off Precedex now. - CT head- no acute findings -Urine drug screen is positive for Benzo and Marijuana Treated in ER with Ativan 1 mg IV, banana bag, IVF's -Continue Librium & Gabapentin withdrawal protocol -Daily Thiamine, MVI. -Continue IVF's Acute Kidney Injury: Resolved. Likely due to volume depletion. -Continue IVF's -Monitoring renal function Hypokalemia/Hypomagnesemia: Replaced and monitoring. Mild Rhabdomyolysis: Possibly from tremor/withdrawal. -Continue IVF -Follow CPK. Abnormal LFTs: Likely due to chronic alcohol use.Baseline unknown -History of Hepatitis C, alcohol abuse Elevated TSH: Mild elevation. Follow up in 3-4 weeks. Prolonged QT: Avoid QT prolonging medications -Recheck EKG in am DVT Prophylaxis: Sq HeparinSCD's Code Status: FULL CODE Disposition: Discharge once is clinically stable. Prisoner at [facility] Vital Signs: Date Time Temp Pulse Resp B/P Pulse Ox O2 Delivery O2 Flow Rate FiO2 06/15/16 12:00 Room Air 06/15/16 12:00 36.9 82 24 139/84 90 Room Air 06/15/16 10:00 57 24 140/90 96 Room Air 06/15/16 08:00 Room Air 06/15/16 08:00 37.2 57 29 152/94 96 Room Air 06/15/16 06:10 65 31 151/74 98 Room Air 06/15/16 04:00 36.6 57 28 135/83 94 Room Air 06/15/16 04:00 96 Room Air 06/15/16 02:00 67 27 148/98 99 Room Air 06/15/16 00:01 96 Room Air 06/15/16 00:01 52 23 168/98 96 Room Air 06/14/16 22:00 60 23 167/98 98 Room Air 06/14/16 21:31 73 28 131/98 97 Room Air 06/14/16 21:00 68 20 146/99 94 Room Air 06/14/16 20:30 66 21 175/88 92 Room Air 06/14/16 20:00 93 Room Air 06/14/16 20:00 36.9 70 24 175/88 94 Room Air 06/14/16 20:00 73 22 169/85 94 Room Air 06/14/16 19:30 36.9 76 25 170/94 94 Room Air 06/14/16 18:35 99 18 130/100 96 06/14/16 18:30 99 18 96 Room Air 06/14/16 18:02 101 24 130/100 96 Room Air 06/14/16 17:56 94 24 155/100 97 Room Air 06/14/16 17:09 Room Air 06/14/16 17:00 72 24 131/89 97 Room Air Lab Results: Results Past 24 Hours Test 06/14/16 17:32 06/14/16 22:21 06/15/16 05:20 06/15/16 10:30 Range/Units Vitamin B12 Level 1037 211-911 pg/mL Folate > 24.00 >5.38 ng/mL Urine Color YELLOW Urine Appearance CLEAR CLEAR Urine pH 7.5 4.5-7.5 Urine Specific [place] 1.007 1.000-1.030 Urine Protein NEG NEG Urine Glucose (UA) NEG NEG Urine Ketones NEG NEG Urine Occult Blood TRACE NEG Urine Nitrite NEG NEG Urine Bilirubin NEG NEG Urine Urobilinogen NEG NEG Urine Leukocyte Esterase NEG NEG Urine WBC (Auto) 0 0-5 /hpf Urine RBC (Auto) 0-4 0-4 /hpf Urine Hyaline Casts (Auto) 0 0-5 /lpf Urine Epithelial Cells (Auto) 0-5 0-5 /lpf Urine Bacteria (Auto) NEG NEG Urine Opiates Screen NEG NEG Urine Methadone, Qualitative NEG NEG Urine Barbiturates NEG NEG Urine Phencyclidine (PCP) Level NEG NEG Ur Amphetamine/Methamphetamine NEG NEG MDMA (Ecstasy) Screen NEG NEG Urine Benzodiazepines Screen POS NEG Urine Cocaine Metabolite NEG NEG Urine Marijuana (THC) POS NEG White Blood Count 4.96 4.8-10.8 K/uL Red Blood Count 3.74 4.7-6.1 M/uL Hemoglobin 12.6 14.0-18.0 g/dL Hematocrit 36.5 42-52 % Mean Corpuscular Volume 97.6 80-100 fL Mean Corpuscular Hemoglobin 33.7 25-34 pg Mean Corpuscular Hemoglobin Concent 34.5 32-36 g/dl RDW Standard Deviation 51.1 36.4-46.3 fL RDW Coefficient of Variation 14.3 11.5-14.5 % Platelet Count 74 130-400 K/uL Mean Platelet Volume 10.9 7.4-10.4 fL Absolute Reticulocyte Count 0.08 0.02-0.10 10^6/uL Percent Reticulocyte Count 2.0 0.5-2.0 % Sodium Level 143 136-145 mmol/L Potassium Level 3.1 3.5-5.1 mmol/L Chloride Level 110 98-107 mmol/L Carbon Dioxide Level 25 21-32 mmol/L Anion Gap 8.0 3-11 mmol/L Blood Urea Nitrogen 19 7-18 mg/dl Creatinine 0.89 0.60-1.40 mg/dl Est Creatinine Clear Calc Drug Dose 101.7 ml/min Estimated GFR () 110.8 Estimated GFR (Non- 95.6 BUN/Creatinine Ratio 21.7 10-20 Random Glucose 90 70-99 mg/dl Calcium Level 8.4 8.5-10.1 mg/dl Magnesium Level 2.1 1.8-2.4 mg/dl Total Bilirubin 2.4 0.2-1 mg/dl Direct Bilirubin 1.3 0-0.2 mg/dl Aspartate Amino Transf (AST/SGOT) 114 15-37 U/L Alanine Aminotransferase (ALT/SGPT) 49 12-78 U/L Alkaline Phosphatase 56 45-117 U/L Total Creatine Kinase 693 39-308 U/L Total Protein 7.2 6.4-8.2 gm/dl Albumin 3.2 3.4-5.0 gm/dl Hepatitis B Surface Antigen NEG NEG Hepatitis C Antibody PRELIM POS NEG Test 06/15/16 15:04 Range/Units Microbiology Results 06/15/16 MRSA DNA Surveillance Screen - Final, Complete Specimen Negative for MRSA by DNA Probe 06/14/16 Urine Culture, Received Pending
[2016-06-15 16:05] LABS: BUN/CREATININE RATIO 17.5 (10-20); CALCIUM 8.4 mg/dl (8.5-10.1); CREATININE 0.89 mg/dl (0.60-1.40); POTASSIUM 3.5 mmol/L (3.5-5.1)
[2016-06-15] MEDS: GABAPENTIN 600MG Q6H DOSE PO SCH ×2 (17:53→23:08)
[2016-06-15] MEDS ORDERED: DexMEDEtomidine IV DRIP IV STA (18:22)
[2016-06-15] MEDS ORDERED: DexMEDEtomidine HCL IV 200 MCG in SODIUM CHLORIDE 0.9% 50ML 48 ML IV PRN (19:00)
[2016-06-15] MEDS: ACETAMINOPHEN 325 MG TAB PO PRN (20:09)
[2016-06-15] MEDS ORDERED: MAGNESIUM OXIDE 400 MG TAB PO SCH (21:00)
[2016-06-16] VITALS (9 sets, daily range): BP systolic 108–147; BP diastolic 69–89; PULSE 63–94; TEMP 36.8–37.8; O2SAT 94–96
[2016-06-16] MEDS: CHLORDIAZEPOXIDE 50MG 1ST DOSE PO SCH (04:17)
[2016-06-16] MEDS: ACETAMINOPHEN 325 MG TAB PO PRN (04:17)
[2016-06-16 05:30] LABS: HEMATOCRIT 35.9 % (42-52); MEAN CELL VOLUME 96.5 fL (80-100); MEAN CORPUSCULAR HEMOGLOBIN 33.6 pg (25-34); MEAN CORPUSCULAR HGB CONC 34.8 g/dl (32-36); RED BLOOD COUNT 3.72 M/uL (4.7-6.1); WHITE BLOOD COUNT 8.04 K/uL (4.8-10.8)
[2016-06-16 05:46] LABS: BUN/CREATININE RATIO 19.8 (10-20); CREATININE 0.73 mg/dl (0.60-1.40); MAGNESIUM 1.7 mg/dl (1.8-2.4); PHOSPHORUS 2.5 mg/dl (2.5-4.9); POTASSIUM 3.4 mmol/L (3.5-5.1)
[2016-06-16 05:49] LABS: BASO % 0.2 %; BASO ABS # 0.02 K/uL (0-0.2); COMPLETE YES; IG% 0.1 %; LYMPH % 19.4 %; LYMPH ABS # 1.56 K/uL (1.2-3.4); MEAN PLATELET VOLUME 11.7 fL (7.4-10.4); MONO % 9.5 %; NEUT % 70.8 %; PLATELET COUNT 77 K/uL (130-400)
[2016-06-16] MEDS ORDERED: POTASSIUM CHLORIDE 20 MEQ/15 ML UDC PO ONE (05:55)
[2016-06-16] MEDS: MAGNESIUM SULFATE 1GM / D5W 1 GM in PREMIXED IN D5W 100 ML IV SCH ×2 (06:25→07:42)
[2016-06-16] MEDS: HEPARIN SOD 5000 UNIT/0.5 ML CARP SQ SCH ×2 (06:25→13:16)
[2016-06-16] MEDS: SODIUM CHLORIDE 0.9% 1000ML 1,000 ML IV SCH (06:27)
[2016-06-16] MEDS: GABAPENTIN 600MG Q8H DOSE PO SCH ×2 (08:00→10:56)
[2016-06-16] MEDS ORDERED: FLINTSTONES COMPLETE CHEWABLE TAB PO SCH (09:00)
[2016-06-16] MEDS ORDERED: MAGNESIUM OXIDE 400 MG TAB PO SCH (09:00)
[2016-06-16] MEDS ORDERED: THIAMINE HCL 100 MG TAB PO SCH (09:00)
[2016-06-16] MEDS ORDERED: POTASSIUM CHLORIDE 20 MEQ/15 ML UDC PO SCH (09:00)
--- NOTE | 2016-06-16 09:09 | DIAGNOSTIC IMAGING REPORT ---
HEAD CT NONCONTRAST CT DOSE: 844.62 mGy.cm HISTORY: Mental status change Altered mental status TECHNIQUE: Multiaxial CT images of the head were performed without the use of intravenous contrast. Comparison: 06/14/2016 Findings: The paranasal sinuses and mastoid air cells are clear. The calvarium and skull base are intact. The ventricles and sulci are within normal limits. There is no mass, hematoma, midline shift, or acute infarct. 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 Impression: No acute intracranial abnormality. No change from the prior study. Electronically signed by: Mahad iL M.D. 06/16/2016 9:07 AM Dictated Date/Time: 06/16/2016 9:05 AM
[2016-06-16] MEDS ORDERED: POTASSIUM PHOS 3 MMOL/1 ML INFUSION IV STA (10:04)
[2016-06-16] MEDS ORDERED: POTASSIUM CHLR 10 MEQ / WTR 10 MEQ in PREMIXED WATER 100 ML IV ONE (10:30)
[2016-06-16] MEDS ORDERED: POTASSIUM PHOSPHATE INJ 9 MMOL in SODIUM CHLORIDE 0.9% 250ML 250 ML IV SCH (11:00)
--- NOTE | 2016-06-16 11:48 | Critical Care Progress Note ---
Critical Care Progress Note Date of Service Jun 16, 2016. ICU Day ICU Day Number: [address] Larry Subjective Yesterday, was agitated again, and so Precedex was restarted at 0.4. This made him very drowsy, so around 10pm it was stopped. He has remained drowsy overall, and is not tolerating PO medications. Objective GENERAL: Awake, drowsy but arousable HENT: Normocephalic, atraumatic. Oropharynx unremarkable. EYES: Normal conjunctiva. Sclera non-icteric. RESPIRATORY: Clear to auscultation. CARDIAC: Regular rate, normal rhythm. Extremities warm and well perfused. Pulses equal. ABDOMEN: Soft, non-distended. No tenderness to palpation. No rebound or guarding. No masses. RECTAL: Deferred. MUSCULOSKELETAL: Chest examination reveals no tenderness. No joint edema. LOWER EXTREMITIES: Calves are equal size bilaterally and non-tender. No edema. No discoloration. NEURO: Drowsy. SKIN: No rash or jaundice noted. Current SOFA Score SOFA Score Response (Comments) Value Platelets (x10) < 100 2 Bilirubin (mg/dL) 2.0 - 5.9 2 Radha Coma Score 13 - 14 1 Level of Hypotension No Hypotension 0 Total 5 Previous SOFA Scores 5 on 06/16/16 Assessment & Plan 55 yo M prisoner who presents in alcohol withdrawal. Neuro: Was on gabapentin / Librium protocol but is overly sedated currently Head CT completed for altered mental status 06/16: No acute intracranial abnormalities - Stop Precedex - Stop gabapentin - Change Librium to 25mg Q8H instead of 50mg q8h, then taper - Banana bag daily instead of PO vitamins Resp: On room air overnight, occasionally requiring 2L CXR 06/14: No acute process - End tidal CO2 monitoring CVS: CV drips: None EKG: Last on 06/15/16:NSR 69bpm, QTc 495 - DC Propranolol today Fluids/Renal: I&O's: Net balance +1647mL Cr 0.73 Urine output: 500mL today, 2850mL yesterday Is receiving NS at 75mL/hour Electrolytes: K 3.4, Phos 2.5, Mg 1.7 - Received 2g IV MagSulfate this AM - Will give 9mmoL K Phos today - Will give 10mEq K Benito today GI: Diet: Regular ID: Tmax: 39.4 on 06/15, then 37.8 today Urine culture pending MRSA swab negative - Will hold Tylenol today - If spikes further fevers, please inform MD, may require a workup for infection (repeat CXR, labwork, and potentially LP) The patient is stable for transfer to telemetry unit. Please do not hesitate to contact us with any questions. Resident Physician Supervision Note: Dr. Johnson was resident physician during care of patient. I separately evaluated patient and did history and exam. I discussed the case with the resident and generally agree with the findings and plan. Patient had significant improvement in his mental status, he is over his agitated delirium, we've actually decreased his Librium requirements. He has been off Precedex for greater than 24 hours. He is able to get Librium through the jail system for which she is currently incarcerated. The patient, from my standpoint, is stable for discharge back to his facility with a scheduled Librium taper. Documented By: Gordy Larry DO Consults & Procedures Consultants: NA Procedures: NA Data Medications: Current Inpatient Medications Medications (Trade) Dose Ordered Sig/Camacho Route Start Time Stop Time Status Last Admin Dose Admin Heparin Sodium (Porcine) 5000 unit 5,000 unit Q8 SQ 06/14/16 22:00 07/14/16 21:59 06/16/16 06:25 5,000 UNIT Sodium Chloride (Nss 1000ml) 1,000 ml @ 75 mls/hr [id number] IV 06/15/16 10:00 07/15/16 09:59 06/16/16 06:27 75 MLS/HR Multivitamins (Flintstones Complete Tab) 1 tab QAM PO 06/16/16 09:00 07/16/16 08:59 Folic Acid (Folvite Tab) 1 mg QAM PO 06/16/16 09:00 07/16/16 08:59 Gabapentin (Neurontin Tab) 600 mg Q8H PO 06/16/16 08:00 06/17/16 00:01 Gabapentin (Neurontin Tab) 600 mg Q12H PO 06/17/16 12:00 06/18/16 00:01 Gabapentin (Neurontin Tab) 600 mg Q24H PO 06/19/16 00:00 06/19/16 00:01 Chlordiazepoxide (Librium Cap) 25 mg Q8H PO 06/17/16 14:00 06/18/16 06:01 Chlordiazepoxide (Librium Cap) 10 mg Q12H PO 06/18/16 18:00 06/19/16 06:01 Thiamine HCl (Vitamin B-1 Tab) 100 mg DAILY PO 06/16/16 09:00 07/16/16 08:59 Magnesium Oxide 400 mg 400 mg DAILY PO 06/16/16 09:00 07/16/16 08:59 Dexmedetomidine HCl/Sodium Chloride (PreCEDEX INJ/ Nss 50ml) 50 ml @ 0 mls/hr Q0M PRN IV 06/15/16 19:00 06/19/16 18:59 06/15/16 22:13 8.9 MLS/HR Potassium Chloride 40 meq 40 meq QAM PO 06/16/16 09:00 07/16/16 08:59 Potassium Phosphate/Sodium Chloride (Potassium Phosphate Inj/Nss 250ml) 253 ml @ 125 mls/hr TODAY@1100 IV 06/16/16 11:00 06/16/16 13:02 06/16/16 10:52 125 MLS/HR Chlordiazepoxide (Librium Cap) 25 mg Q8H PO 06/16/16 14:00 06/17/16 06:01 UNV I & O: 24-Hour Column 06/16/16 08:00 Intake Total 4103 ml Output Total 2350 ml Balance 1753 ml Vital Signs: Date Time Temp Pulse Resp B/P Pulse Ox O2 Delivery O2 Flow Rate FiO2 06/16/16 10:00 74 30 127/80 95 Nasal Cannula 2.0 06/16/16 08:00 37.1 85 37 119/78 94 Room Air 06/16/16 08:00 Room Air 06/16/16 06:00 74 38 147/89 96 Room Air 06/16/16 04:00 96 Room Air 06/16/16 04:00 37.8 68 39 125/89 95 Room Air 06/16/16 02:00 70 30 127/77 94 Room Air 06/16/16 01:00 37.8 63 36 108/69 94 Room Air 06/15/16 23:59 96 Room Air 06/15/16 22:00 37.0 85 38 103/58 92 Room Air 06/15/16 20:00 96 Room Air 06/15/16 20:00 38.4 92 41 124/77 96 Room Air 06/15/16 17:59 39.4 99 40 120/67 94 Room Air 06/15/16 16:00 Room Air 06/15/16 14:00 108 30 130/89 98 Room Air 06/15/16 12:00 Room Air 06/15/16 12:00 36.9 82 24 139/84 90 Room Air Laboratory Results: Last 24 Hours Test 06/15/16 15:04 06/16/16 05:12 Sodium Level 137 mmol/L 143 mmol/L Potassium Level 3.5 mmol/L 3.4 mmol/L Chloride Level 106 mmol/L 112 mmol/L Carbon Dioxide Level 22 mmol/L 22 mmol/L Anion Gap 9.0 mmol/L 9.0 mmol/L Blood Urea Nitrogen 16 mg/dl 14 mg/dl Creatinine 0.89 mg/dl 0.73 mg/dl Est Creatinine Clear Calc Drug Dose 101.7 ml/min 124.0 ml/min Estimated GFR () 110.8 120.2 Estimated GFR (Non- 95.6 103.7 BUN/Creatinine Ratio 17.5 19.8 Random Glucose 117 mg/dl 92 mg/dl Calcium Level 8.4 mg/dl 8.0 mg/dl Total Creatine Kinase 490 U/L White Blood Count 8.04 K/uL Red Blood Count 3.72 M/uL Hemoglobin 12.5 g/dL Hematocrit 35.9 % Mean Corpuscular Volume 96.5 fL Mean Corpuscular Hemoglobin 33.6 pg Mean Corpuscular Hemoglobin Concent 34.8 g/dl Platelet Count 77 K/uL Mean Platelet Volume 11.7 fL Neutrophils (%) (Auto) 70.8 % Lymphocytes (%) (Auto) 19.4 % Monocytes (%) (Auto) 9.5 % Eosinophils (%) (Auto) 0.0 % Basophils (%) (Auto) 0.2 % Neutrophils # (Auto) 5.69 K/uL Lymphocytes # (Auto) 1.56 K/uL Monocytes # (Auto) 0.76 K/uL Eosinophils # (Auto) 0.00 K/uL Basophils # (Auto) 0.02 K/uL RDW Standard Deviation 51.1 fL RDW Coefficient of Variation 14.4 % Immature Granulocyte % (Auto) 0.1 % Immature Granulocyte # (Auto) 0.01 K/uL Phosphorus Level 2.5 mg/dl Magnesium Level 1.7 mg/dl Resident Tracking Resident Involvement: Resident Care Provided Care Provided: Adult Hospital Medicine (ICU)
[2016-06-16] MEDS ORDERED: MULTI-VITAMIN INFUSION INJ 10 ML, THIAMINE HCL INJ 100 MG, FoLIC ACID INJ 1 MG in SODIU... IV SCH (12:00)
[2016-06-16] MEDS ORDERED: TRAMADOL HCL 50 MG TAB PO STA (13:31)
[2016-06-16] MEDS ORDERED: CHLORDIAZEPOXIDE 25 MG CAP PO SCH (14:00)
[2016-06-16] MEDS ORDERED: CHLORDIAZEPOXIDE 50MG Q8H DOSE PO SCH (14:00)
--- NOTE | 2016-06-16 15:23 | Discharge Instructions ---
Discharge Instructions Date of Service Jun 16, 2016. Admission Reason for Admission: Alcohol Withdrawl Discharge Discharge Diagnosis / Problem: acute alcohol withdrawal Discharge Goals Goal(s): Increase independence Activity Recommendations Activity Limitations: resume your previous activity Lifting Limitations: none Exercise/Sports Limitations: none Shower/Bathe: no limitations Driving or Machine Use: no limitations . Instructions / Follow-Up Instructions / Follow-Up Follow-up with the medical department daily until cleared by the physician Current Hospital Diet Patient's current hospital diet: Regular Diet Discharge Diet Recommended Diet: Regular Diet Pending Studies Studies pending at discharge: yes List of pending studies: Your preliminary test for hepatitis C was positive. The confirmatory test is still pending. Follow-up with the correctional physician regarding hepatitis C. Medical Emergencies . Who to Call and When: Medical Emergencies: If at any time you feel your situation is an emergency, please call 911 immediately. . Non-Emergent Contact Non-Emergency issues call your: Hospital Doctor . Past History Medical & Surgical History: (1) Alcohol withdrawal (2) History of alcohol abuse (3) Hepatitis C . "Provider Documentation" section prepared by Gordy Larry. VTE Core Measure Inpt VTE Proph given/why not?: Unfractionated heparin SQ, SCD's
--- NOTE | 2016-06-16 16:07 | Progress Note ---
Medicine Progress Note Date & Time of Visit: Jun 16, 2016 at 15:56. Subjective seen resting in bed, comfortable alert, oriented not in distress, speaks in sentences with no effort denies chest pain, dyspnea, palpitations, dizziness, nausea, abdominal pain, changes with urination or bowel movement states he feels much better today and ready for discharge denies other symptoms Objective Last 8 Hrs Date Time Temp Pulse Resp B/P Pulse Ox O2 Delivery O2 Flow Rate FiO2 06/16/16 15:39 36.8 87 28 95 Room Air 06/16/16 14:00 87 28 132/89 95 Room Air 06/16/16 12:00 Room Air 06/16/16 12:00 36.8 94 30 130/87 96 Room Air 06/16/16 10:00 74 30 127/80 95 Nasal Cannula 2.0 06/16/16 08:00 37.1 85 37 119/78 94 Room Air 06/16/16 08:00 Room Air Physical Exam: General- oriented x3, not in distress, speaks in sentences with no effort Head- atraumatic Eyes- EOMI, anicteric ENT- oropharynx clear Neck- supple, no JVD, no adenopathy Lungs- clear to auscultation bilaterally Heart- normal rate, regular rhythm; no murmurs Abdomen- normal bowel sounds, soft, nontender, no masses Extremities- no pretibial edema, no calf tenderness Neuro- alert, oriented x 3 no gross focal deficits Skin- warm & dry Laboratory Results: Last 24 Hours Test 06/16/16 05:12 White Blood Count 8.04 K/uL Red Blood Count 3.72 M/uL Hemoglobin 12.5 g/dL Hematocrit 35.9 % Mean Corpuscular Volume 96.5 fL Mean Corpuscular Hemoglobin 33.6 pg Mean Corpuscular Hemoglobin Concent 34.8 g/dl Platelet Count 77 K/uL Mean Platelet Volume 11.7 fL Neutrophils (%) (Auto) 70.8 % Lymphocytes (%) (Auto) 19.4 % Monocytes (%) (Auto) 9.5 % Eosinophils (%) (Auto) 0.0 % Basophils (%) (Auto) 0.2 % Neutrophils # (Auto) 5.69 K/uL Lymphocytes # (Auto) 1.56 K/uL Monocytes # (Auto) 0.76 K/uL Eosinophils # (Auto) 0.00 K/uL Basophils # (Auto) 0.02 K/uL RDW Standard Deviation 51.1 fL RDW Coefficient of Variation 14.4 % Immature Granulocyte % (Auto) 0.1 % Immature Granulocyte # (Auto) 0.01 K/uL Sodium Level 143 mmol/L Potassium Level 3.4 mmol/L Chloride Level 112 mmol/L Carbon Dioxide Level 22 mmol/L Anion Gap 9.0 mmol/L Blood Urea Nitrogen 14 mg/dl Creatinine 0.73 mg/dl Est Creatinine Clear Calc Drug Dose 124.0 ml/min Estimated GFR () 120.2 Estimated GFR (Non- 103.7 BUN/Creatinine Ratio 19.8 Random Glucose 92 mg/dl Calcium Level 8.0 mg/dl Phosphorus Level 2.5 mg/dl Magnesium Level 1.7 mg/dl Assessment & Plan Alcohol Withdrawal: - Presents presented with altered mental status, tremor, hx heavy alcohol use - was placed on Precedex - CT head- no acute findings -Urine drug screen is positive for Benzo and Marijuana Treated in ER with Ativan 1 mg IV, banana bag, IVF's, Daily Thiamine, MVI. - also placed on Librium taper & Gabapentin withdrawal protocol - off Precedex - cleared for discharge per [employer] Dr. Larry - will need to complete Librium taper 06/16/16: 25mg po q8h 06/17/16: 10mg po q12h then STOP - monitor Acute Kidney Injury: Resolved. Likely due to volume depletion. - given IV fluids - monitor renal function Hypokalemia/Hypomagnesemia: Replaced - repeat K and Mg tomorrow Mild Rhabdomyolysis: Possibly from tremor/withdrawal. CPK improved from 1100 to 490 monitor Abnormal LFTs: Likely due to chronic alcohol use.Baseline unknown -History of Hepatitis C, alcohol abuse - monitor LFTs regularly - Hep Screen Positive, further work up as outpatient Elevated TSH: Mild elevation. Follow up in 3-4 weeks. Prolonged QT: QT 490s Avoid QT prolonging medications -Recheck EKG tomorrow Thrombocytopenia Anemia Plt 77 Hg 12 - repeat CBC tomorrow then regularly Episodes of Fever no leukocytosis urine culture negative CXR clear - monitor DVT Prophylaxis: Sq Heparin given Code Status: FULL CODE Disposition: return at [facility] ff up with [facility] case discussed with patient and he is agreeable with plan of care Current Inpatient Medications: Current Inpatient Medications Medications (Trade) Dose Ordered Sig/Camacho Route Start Time Stop Time Status Last Admin Dose Admin Heparin Sodium (Porcine) (Heparin Sq 5000 Unit/0.5ml) 5,000 unit Q8 SQ 06/14/16 22:00 07/14/16 21:59 06/16/16 06:25 5,000 UNIT Multivitamins (Flintstones Complete Tab) 1 tab QAM PO 06/16/16 09:00 07/16/16 08:59 Future hold Folic Acid (Folvite Tab) 1 mg QAM PO 06/16/16 09:00 07/16/16 08:59 Future hold Thiamine HCl (Vitamin B-1 Tab) 100 mg DAILY PO 06/16/16 09:00 07/16/16 08:59 Future hold Magnesium Oxide (Mag-Ox Tab) 400 mg DAILY PO 06/16/16 09:00 07/16/16 08:59 Potassium Chloride (Merlyn Ciel Elix) 40 meq QAM PO 06/16/16 09:00 07/16/16 08:59 Chlordiazepoxide (Librium Cap) 25 mg Q8H PO 06/16/16 14:00 06/17/16 06:01 06/16/16 13:16 25 MG Chlordiazepoxide (Librium Cap) 10 mg Q12H PO 06/17/16 18:00 06/18/16 06:01
[2016-06-16] MEDS ORDERED: FLV1 PO (16:11)
[2016-06-16] MEDS ORDERED: THM100 PO (16:11)
[2016-06-16] MEDS ORDERED: PEDICHW50 PO (16:11)
[2016-06-16] MEDS ORDERED: CHLO25CA10 PO (16:11)
[2016-06-16] MEDS ORDERED: CHLO10CA7 PO (16:11)
[2016-06-16] MEDS ORDERED: MGNO400 PO (16:12)
[2016-06-16] MEDS ORDERED: MCRK20 PO (16:12)
--- NOTE | 2016-06-16 16:17 | Discharge Summary ---
Discharge Summary Date of Service Jun 16, 2016. Discharge Summary Admission Date: Jun 14, 2016 at 16:19 Discharge Date: Jun 16, 2016 Discharge Disposition: Home ([facility]) Principal Diagnosis: Alcohol Withdrawal: Secondary Diagnoses/Problems: Please refer to hospital course below. Pending Studies/Follow-Up: HEAD CT NONCONTRAST CT DOSE: 1425.10 mGy.cm HISTORY: Altered mental status. TECHNIQUE: Multiaxial CT images of the head were performed without the use of intravenous contrast. Automated exposure control was utilized for this study. Comparison: None. Findings: The paranasal sinuses and mastoid air cells are clear. The calvarium and skull base are intact. The ventricles and sulci are within normal limits. There is no mass, hematoma, midline shift, or acute infarct. Impression: No acute intracranial abnormality. Medication Reconciliation New Medications: Chlordiazepoxide (Librium) 10 Mg Cap 10 MG PO Q12H for 1 Day, #2 CAP for 06/17/16 Chlordiazepoxide (Librium) 25 Mg Cap 25 MG PO Q8H for 1 Day, #2 CAP for 06/16/16 Potassium Chloride (Klor-Con M20) 20 Meq Tabcr 2 TABS PO DAILY for 7 Days, #14 TABS Folic Acid (Folic Acid) 1 Mg Tab 1 MG PO QAM for 7 Days, #7 TAB Magnesium Oxide (Magnesium-Oxide) 400 Mg Tab 400 MG PO BID for 7 Days, #14 TAB Pediatric Multiple Vitamin W/ (Flintstones Chewable) 1 Chw Chw 1 TAB PO QAM for 7 Days, #7 TAB Thiamine HCl (Vitamin B-1) 100 Mg Tab 100 MG PO DAILY for 7 Days, #7 TAB Discontinued Medications: Acetaminophen (Acetaminophen) 325 Mg Tab 650 MG PO TID PRN for Pain Chlordiazepoxide Hcl (Librium) 25 Mg Cap 25 MG PO TID PRN for WITHDRAWAL, CAP Loperamide Hcl (Imodium) 2 Mg Cap 2 MG PO QID PRN for Diarrhea, CAP Meclizine Hcl (Meclizine Hcl) 25 Mg Chw 25 MG PO TID PRN for Dizziness or Vertigo Thiamine Hcl (Thiamine Hcl) 100 Mg/Ml Inj 100 MG IM DAILY Admission Information HPI (per Admitting provider): This is a 55 year old male with PMH of alcohol abuse, remote history of IVDA, Hepatitis C, chronic smoker, who was sent to the ED from [facility] for altered mental status. Patient is not a reliable historian due to mental status. Patient has been in and out of custodial in the past but was re- incarcerated 2 days ago. Correctional officers at bedside report worsening mental status over past 2 days. Patient was already confused when picked up off the street 2 days ago but worsened over past 2 days. Pt states "I am going though DT's". He reports tremors, anxiety, sweating, abdominal cramping, paresthesias. He told ER physician last drink was 4 days ago, but tells me 8 days. He was drinking 6 pack of beer every day. He has been on Librium. He was vomiting several days ago when drinking but no longer feeling nauseous. He additionally reports rectal bleeding attributed to hemorrhoids. Denies headache , URI symptoms, cough, SOB, chest pain, diarrhea, urinary changes, recent fall or injury. Denies history of withdrawal seizure. Denies hx of HTN, DM, cardiac or lung disease. No further hx could be obtained due to AMS. Physical Exam (per Admitting): General Appearance: WD/WN, + pertinent finding (anxious confused 55 year old male) Head: normocephalic, atraumatic Eyes: normal inspection, PERRL, EOMI ENT: hearing grossly normal, pharynx normal Neck: supple, trachea midline Respiratory/Chest: lungs clear, normal breath sounds, no respiratory distress, no accessory muscle use Cardiovascular: regular rate, rhythm, no murmur Abdomen/GI: normal bowel sounds, non tender, soft Extremities/Musculoskelatal: no calf tenderness, no pedal edema, + pertinent finding (left arm and bilateral ankles in handcuffs) Neurologic/Psych: alert, + disoriented (oriented to person and date, disoriented to place (states location as [place])), + pertinent finding (anxious , tremulous, + tangential thinking, speech is normal, no facial droop, no gross focal motor deficit) Skin: normal color, warm/dry Hospital Course Alcohol Withdrawal: - Presents presented with altered mental status, tremor, hx heavy alcohol use - was placed on Precedex - CT head- no acute findings -Urine drug screen is positive for Benzo and Marijuana Treated in ER with Ativan 1 mg IV, banana bag, IVF's, Daily Thiamine, MVI. 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 Larry - will need to complete Librium taper 06/16/16: 25mg po q8h 06/17/16: 10mg po q12h then STOP - monitor Acute Kidney Injury: Resolved. Likely due to volume depletion. - given IV fluids - monitor renal function Hypokalemia/Hypomagnesemia: Replaced - repeat K and Mg tomorrow Mild Rhabdomyolysis: Possibly from tremor/withdrawal. CPK improved from 1100 to 490 monitor Abnormal LFTs: Likely due to chronic alcohol use.Baseline unknown -History of Hepatitis C, alcohol abuse - monitor LFTs regularly - Hep Screen Positive, further work up as outpatient Elevated TSH: Mild elevation. Follow up in 3-4 weeks. Prolonged QT: QT 490s Avoid QT prolonging medications -Recheck EKG tomorrow Thrombocytopenia Anemia Plt 77 Hg 12 - repeat CBC tomorrow then regularly Episodes of Fever no leukocytosis urine culture negative CXR clear - monitor DVT Prophylaxis: Sq Heparin given Code Status: FULL CODE Disposition: return at [facility] ff up with [facility] case discussed with patient and he is agreeable with plan of care Total time spent on discharge = 45 minutes This includes examination of the patient, discharge planning, medication reconciliation, and communication with other providers. Discharge Instructions Discharge Instructions Date of Service Jun 16, 2016. Admission Reason for Admission: Alcohol Withdrawal Discharge Discharge Diagnosis / Problem: Alcohol Withdrawal Discharge Goals Goal(s): Diagnostic testing, Therapeutic intervention Activity Recommendations Activity Limitations: as noted below (no heavy exertion until re-evaluated by Physician) . Instructions / Follow-Up Instructions / Follow-Up Please refer to hospital discharge summary for further details. Current Hospital Diet Patient's current hospital diet: Regular Diet Discharge Diet Recommended Diet: Regular Diet Procedures Procedures Performed: CT Head: ] HEAD CT NONCONTRAST CT DOSE: 1425.10 mGy.cm HISTORY: Altered mental status. TECHNIQUE: Multiaxial CT images of the head were performed without the use of intravenous contrast. Automated exposure control was utilized for this study. Comparison: None. Findings: The paranasal sinuses and mastoid air cells are clear. The calvarium and skull base are intact. The ventricles and sulci are within normal limits. There is no mass, hematoma, midline shift, or acute infarct. Impression: No acute intracranial abnormality. Pending Studies Studies pending at discharge: yes List of pending studies: Repeat BUN/Crea, K, Mg, CBC, LFTs tomorrow then regularly. Further work up for Hep C. Medical Emergencies . Who to Call and When: Medical Emergencies: If at any time you feel your situation is an emergency, please call 911 immediately. . Non-Emergent Contact Non-Emergency issues call your: Primary Care Provider . Past History Medical & Surgical History: (1) History of alcohol abuse (2) Altered mental status (3) Alcohol withdrawal (4) History of IV drug abuse (5) Hepatitis C (6) H/O foot surgery . "Provider Documentation" section prepared by Emanuel Fallon. VTE Core Measure Inpt VTE Proph given/why not?: Unfractionated heparin SQ, SCD's Discharge Instructions Date of Service Jun 16, 2016. Admission Reason for Admission: Alcohol Withdrawl Discharge Discharge Diagnosis / Problem: acute alcohol withdrawal Discharge Goals Goal(s): Increase independence Activity Recommendations Activity Limitations: resume your previous activity Lifting Limitations: none Exercise/Sports Limitations: none Shower/Bathe: no limitations Driving or Machine Use: no limitations . Instructions / Follow-Up Instructions / Follow-Up Follow-up with the medical department daily until cleared by the physician Current Hospital Diet Patient's current hospital diet: Regular Diet Discharge Diet Recommended Diet: Regular Diet Pending Studies Studies pending at discharge: yes List of pending studies: Your preliminary test for hepatitis C was positive. The confirmatory test is still pending. Follow-up with the correctional physician regarding hepatitis C. Medical Emergencies . Who to Call and When: Medical Emergencies: If at any time you feel your situation is an emergency, please call 911 immediately. . Non-Emergent Contact Non-Emergency issues call your: Hospital Doctor . Past History Medical & Surgical History: (1) Alcohol withdrawal (2) History of alcohol abuse (3) Hepatitis C . "Provider Documentation" section prepared by Gordy Larry. VTE Core Measure Inpt VTE Proph given/why not?: Unfractionated heparin SQ, SCD's
--- NOTE | 2016-06-16 16:26 | Progress Note ---
Progress Note Date of Service Jun 16, 2016. Progress Note attending addendum case signed out to [facility] RENEE Rodriguez Discharge summary and Prescriptions will be faxed to them too Emanuel Fallon MD
[2016-06-16] MEDS ORDERED: GABAPENTIN 600MG Q12H DOSE PO SCH (18:00)
[2016-06-17] MEDS ORDERED: GABAPENTIN 600MG X1 DOSE PO SCH (06:00)
[2016-06-17] MEDS ORDERED: GABAPENTIN 600MG Q12H DOSE PO SCH (12:00)
[2016-06-17] MEDS ORDERED: CHLORDIAZEPOXIDE 25MG Q8H DOSE PO SCH (14:00)
[2016-06-17 15:38] LABS: HYDROXYETHYLFLURAZEPAM CONF NEGATIVE NG/ML (CUTOFF=50); HYDROXYMIDAZOLAM NEGATIVE NG/ML (CUTOFF=50); HYDROXYTRIAZOLAM CONF NEGATIVE NG/ML (CUTOFF=50); TEMAZEPAM CONF NEGATIVE NG/ML (CUTOFF=50)
[2016-06-17] MEDS ORDERED: CHLORDIAZEPOXIDE 10MG Q12H DOSE PO SCH (18:00)
[2016-06-18 08:35] LABS: HEPATITIS C RNA TMA QUAL Detected
[2016-06-18] MEDS ORDERED: CHLORDIAZEPOXIDE 10MG Q12H DOSE PO SCH (18:00)
[2016-06-19] MEDS ORDERED: GABAPENTIN 600MG X1 DOSE PO SCH
== END 2016-06-16 16:15 | disposition home or self-care (01) | DRG 897 ==
LOC: ENRESERVTM → ENRESERVDT → CANRESERV → C.EDB 14:08 → C.MSICU 16:19 → EDBEDREQSVC 17:52 → EDBEDREQTM 17:52
PROVIDERS: ADMIT Hospitalist; ATTEND Internal Medicine
DX: F10.230 Alcohol dependence with withdrawal, uncomplicated (principal); N17.9 Acute kidney failure, unspecified; M62.82 Rhabdomyolysis; E87.6 Hypokalemia; E83.42 Hypomagnesemia; F17.210 Nicotine dependence, cigarettes, uncomplicated; D69.6 Thrombocytopenia, unspecified; D64.9 Anemia, unspecified; E86.1 Hypovolemia; R25.1 Tremor, unspecified; R94.5 Abnormal results of liver function studies; R94.6 Abnormal results of thyroid function studies; I45.81 Long QT syndrome; R50.9 Fever, unspecified; R74.8 Abnormal levels of other serum enzymes; B18.2 Chronic viral hepatitis C; Z87.898 Personal history of other specified conditions; Z86.59 Personal history of other mental and behavioral disorders; Z79.899 Other long term (current) drug therapy